=== PATIENT | male | born 1955 ===

== ENCOUNTER 2017-08-09 07:04 | Day surgery (SDC) | payer MEDICARE ==
[~2017-08-09 07:04] MED LIST: Acetaminophen TAB* 325 MG PO PRN; Buffered Lidocaine 0.9% SYRIN* 5 ML/SYR SYRINGE INTRADERM ONE
[2017-08-09] MEDS ORDERED: Insulin LISPRO* 1 UNITS UNIT SUBCUT ONE ×2 (07:37→07:42)
[2017-08-09] MEDS ORDERED: fentaNYL* 50 MCG/ML 2 ML VIAL (100 MCG VIAL) ONE (07:55)
[2017-08-09] MEDS ORDERED: Midazolam* 1 MG/ML 2 ML VIAL (2 MG) ONE ×2 (07:55→08:32)
[2017-08-09 09:13] VITALS: BP 132/75
[2017-08-09] MEDS ORDERED: acetaZOLAMIDE TAB* 250 MG ONE (09:34)
[2017-08-09] MEDS ORDERED: Tetracaine 0.5% OPTH.SOL 4 ML* 1 DROP BTL ONE (09:34)
[2017-08-09] MEDS ORDERED: Tropicamide 1% OPTH.SOL* BTL ONE (09:34)
[2017-08-09] MEDS ORDERED: Lidocaine 1% MPF* 2 ML VIAL ONE (09:34)
[2017-08-09] MEDS ORDERED: Cyclopentolate 1% OPTH.SOL* 2 ML BTL ONE (09:34)
[2017-08-09] MEDS ORDERED: Phenylephrine 2.5% OPTH.SOL* 2 ML BTL ONE (09:34)
[2017-08-09] MEDS ORDERED: Neomycin/Polymy/Dex OPHTH.OIN* 3.5 GM ONE (09:34)
[2017-08-09] MEDS ORDERED: Povidone Iodine 5% OPTH* 30 ML BTL ONE (09:34)
[2017-08-09] MEDS ORDERED: Ketorolac 0.5% OPHTH (NF) 0.5 % 5 ML BTL ONE (09:34)
--- NOTE | 2017-08-10 00:56 | OP ---
DATE OF OPERATION: 08/09/17 - [facility] DATE OF : 51 SURGEON: Samson Moctezuma MD ANESTHESIA: Monitored anesthesia care. PRE-OP DIAGNOSIS: Cataract, left eye. POST-OP DIAGNOSIS: Cataract, left eye with floppy iris syndrome. OPERATIVE PROCEDURE: Extracapsular cataract extraction of the left eye with intraocular lens implant. IMPLANTS: SN60WF 19.0 diopter lens to the left eye. COMPLICATIONS: None. DESCRIPTION OF PROCEDURE: The patient was given phenylephrine 2.5% and cyclopentolate 1% eyedrops in the operative eye in the preoperative area. The patient was brought to the operating room, where a time-out was taken to identify the correct patient, site and side of surgery. The patient's left eye was prepped and draped in the usual sterile fashion with 5% Betadine. A second time-out was taken to verify the correct patient, site and side of surgery and correct lens selection. A lid speculum was placed to the left eye. A 1-mm paracentesis blade was used to make a clear corneal incision in the inferotemporal position. Preservative-free 1% lidocaine was injected into the anterior chamber. DisCoVisc was then injected into the anterior chamber. A 2.75-mm keratome blade was used to make a triplanar incision at the superotemporal position. A Malyugin ring was then inserted due to floppy iris syndrome. A cystotome initiated a capsulorrhexis, which was completed with Utrata forceps in a continuous and curvilinear manner. Hydrodissection of the lens was performed with BSS on a cannula. The lens could be spun in the capsular bag. The phacoemulsification handpiece was used with a divide- and- conquer technique to remove the nucleus in its entirety with 30.47 CDE. The I/ A handpiece then removed the residual cortical lens material. DisCoVisc was injected to inflate the capsular bag. The planned SN60WF 19.0 diopter lens was injected into the capsular bag. The Malyugin ring was then removed from the anterior chamber using a [place] technique. The residual DisCoVisc was removed from the eye with the I/A handpiece. The corneal incisions were hydrated and no leaks occurred at physiologic pressure around 20 mmHg per palpation. The lid speculum was removed and drapes removed. Maxitrol ointment was placed to the surface of the operative eye. An adhesive patch and shield was then placed on the operative eye. The patient was taken to the postoperative area in stable condition. [id number]/[facility] #: [id number] MTDD
== END 2017-08-09 09:19 | disposition home or self-care (01) ==
LOC: OREAST 07:04
PROVIDERS: ATTEND Student in an Organized Health Care Education/Training Program
DX: H25.812 Combined forms of age-related cataract, left eye (principal); H35.362 Drusen (degenerative) of macula, left eye; H21.81 Floppy iris syndrome; I10 Essential (primary) hypertension; E78.00 Pure hypercholesterolemia, unspecified; Z85.038 Personal history of other malignant neoplasm of large intestine; E11.9 Type 2 diabetes mellitus without complications; Z79.4 Long term (current) use of insulin; F17.210 Nicotine dependence, cigarettes, uncomplicated
CPT/HCPCS: A9270-GY; J2250; J3010; V2632

== ENCOUNTER 2017-08-16 06:32 | Day surgery (SDC) | payer MEDICARE ==
[2017-08-16] MEDS ORDERED: Midazolam* 1 MG/ML 2 ML VIAL (2 MG) ONE (07:32)
[2017-08-16] MEDS ORDERED: Propofol* 10 MG/ML 20 ML BTL IV PUSH ONE (07:49)
[2017-08-16] MEDS ORDERED: Cyclopentolate 1% OPTH.SOL* 2 ML BTL ONE (08:34)
[2017-08-16] MEDS ORDERED: Neomycin/Polymy/Dex OPHTH.OIN* 3.5 GM ONE (08:34)
[2017-08-16] MEDS ORDERED: Povidone Iodine 5% OPTH* 30 ML BTL ONE (08:34)
[2017-08-16] MEDS ORDERED: Lidocaine 1% MPF* 2 ML VIAL ONE (08:34)
[2017-08-16] MEDS ORDERED: Phenylephrine 2.5% OPTH.SOL* 2 ML BTL ONE (08:34)
[2017-08-16] MEDS ORDERED: Tetracaine 0.5% OPTH.SOL 4 ML* 1 DROP BTL ONE (08:34)
[2017-08-16] MEDS ORDERED: Ketorolac 0.5% OPHTH (NF) 0.5 % 5 ML BTL ONE (08:34)
[2017-08-16] MEDS ORDERED: Tropicamide 1% OPTH.SOL* BTL ONE (08:34)
[2017-08-16] MEDS ORDERED: acetaZOLAMIDE TAB* 250 MG ONE (08:34)
[2017-08-16 08:46] VITALS: BP 138/78
--- NOTE | 2017-08-16 14:37 | OP ---
DATE OF OPERATION: 08/16/17 - [facility] DATE OF : 51 SURGEON: Samson Moctezuma MD ANESTHESIOLOGIST: Jerry Valentin DO ANESTHESIA: Monitored anesthesia care. PRE-OP DIAGNOSIS: Cataract, right eye, with floppy iris syndrome. POST-OP DIAGNOSIS: Cataract, right eye, with floppy iris syndrome. OPERATIVE PROCEDURE: Extracapsular cataract extraction of the right eye with intraocular lens implant. IMPLANTS: SN60WF 19.5 diopter lens to the right eye. COMPLICATIONS: None. DESCRIPTION OF PROCEDURE: The patient was given phenylephrine 2.5% and cyclopentolate 1% eye drops to the operative eye in the preoperative area. The patient was brought to the operating room where a time-out was taken to identify the correct patient, site, and side of surgery. The patient's right eye was prepped and draped in the usual sterile fashion with 5% Betadine. A second time- out was taken to verify the correct patient, site, and side of surgery and correct lens selection. A lid speculum was placed to the right eye. A 1-mm paracentesis blade was used to make a clear corneal incision in the superotemporal position. Preservative-free 1% lidocaine was injected in the anterior chamber. DisCoVisc was then injected in the anterior chamber. A 2.75- mm keratome blade was used to make a triplanar incision at the inferotemporal position. A Malyugin ring was then inserted for pupil dilation due to floppy iris syndrome. A cystotome initiated a capsulorrhexis which was completed with Utrata forceps in a continuous and curvilinear manner. Hydrodissection of the lens was performed with BSS on a cannula. The lens could be spun in a capsular bag. The phacoemulsification handpiece was used with a [id number] technique to remove the nucleus in its entirety with 18.33 CDE. The I/A handpiece then removed the residual cortical lens material. DisCoVisc was injected to inflate the capsular bag. The planned SN60WF 19.5 diopter lens was injected into the capsular bag. The Malyugin ring was then removed from the anterior chamber with a [place] technique. The residual DisCoVisc was removed from the eye with the I/A handpiece. The corneal incisions were hydrated and no leaks occurred at physiologic pressure around 20 mmHg per palpation. The lid speculum was removed and drapes removed. Maxitrol ointment was placed to the surface of the operative eye. An adhesive patch and shield was placed on the operative eye. Of note, the patient moved his head, arms, and legs persistently throughout the procedure but he has not complained of any discomfort. The patient was taken to the postoperative area in stable condition. [id number]/[facility] #: [id number] [facility]ENT[facility]lie
== END 2017-08-16 08:30 | disposition home or self-care (01) ==
LOC: OREAST 06:32
PROVIDERS: ATTEND Student in an Organized Health Care Education/Training Program
DX: H25.811 Combined forms of age-related cataract, right eye (principal); H21.81 Floppy iris syndrome; H35.362 Drusen (degenerative) of macula, left eye; E11.9 Type 2 diabetes mellitus without complications; Z79.4 Long term (current) use of insulin; F17.210 Nicotine dependence, cigarettes, uncomplicated; I10 Essential (primary) hypertension; E78.00 Pure hypercholesterolemia, unspecified; R01.1 Cardiac murmur, unspecified; E03.9 Hypothyroidism, unspecified; G62.9 Polyneuropathy, unspecified; Z85.038 Personal history of other malignant neoplasm of large intestine; F32.9 Major depressive disorder, single episode, unspecified
CPT/HCPCS: A9270-GY; J2250; J2704; V2632